=== PATIENT | male | born 1960 | race Caucasian/White ===

== ENCOUNTER → 2020-04-13 09:43 | Outpatient (CLI) | payer BC, SELFPAY ==
--- NOTE | ~2020-04-13 | CT_ITS ---
EXAMINATION: CT lung screening DATE: 04/13/2020 10:01 INDICATION: Personal history of nicotine dependence, current smoker with 30 pack year history TECHNIQUE: Computed tomography (CT) of the chest was performed without intravenous contrast. The dose -length product (DLP) was 324.63 mGy-cm. Automated exposure control and iterative reconstruction tech [employer] were employed. COMPARISON: 11/16/2018 FINDINGS: No suspicious pulmonary nodules are identified. Calcified pulmonary nodules are consistent with old granulomatous disease. There is mild emphysema. The lungs are free of acute opacities. There is no pleural effusion or pneumothorax. There is chronic mild atelectasis of the right lower lobe. C alcified coronary artery atherosclerosis is noted. There is mild thoracic spondylosis. There is parti ally imaged anterior fusion hardware in the lower cervical spine. IMPRESSION: 1. Lung-RADS category 1: Negative. Continue annual screening with noncontrast low-dose chest CT in 12 months. Reviewed, dictated and finalized at location A. [employer] IMPRESSION: 1. Lung-RADS category 1: Negative. Continue annual screening with noncontrast l ow-dose chest CT in 12 months.
== END ==
PROVIDERS: PCP Family Medicine; Visit Provider Physician Assistant
DX: Z12.2 Encounter for screening for malignant neoplasm of respiratory organs (principal); Z87.891 Personal history of nicotine dependence
CPT/HCPCS: 71271

== ENCOUNTER 2020-09-10 09:08 | Outpatient (CLI) | payer BC, SELFPAY ==
--- NOTE | ~2020-09-10 | US_ITS ---
EXAMINATION: US carotid duplex BI DATE: 09/10/2020 10:41 INDICATION: Syncope and collapse TECHNIQUE: Grayscale, color Doppler, and pulsed Doppler images of the cervical carotid arteries were obtained. The degree of vessel stenosis is placed in one of the following categories: normal, <50%, 5 0-69%, >=70% but less than near-occlusion, near-occlusion, or total occlusion. Note that percent sten osis relative to normal distal artery lumen diameter is indirectly measured from velocity measurement s as described by Lee, et al. Radiology 2003; [id number]:[id number]. COMPARISON: None. FINDINGS: RIGHT: The right common carotid artery (CCA) peak systolic velocity (PSV) is 112 cm/s. The right internal ca rotid artery (ICA) PSV is 91 cm/s. The right ICA end-diastolic velocity (EDV) is 27 cm/s. The right I CA/CCA PSV ratio is 0.8. Grayscale and color Doppler images yield an estimate of <50% diameter reduct ion from plaque in the ICA. The external carotid artery (ECA) PSV is 95 cm/s. There is antegrade flow in the right vertebral artery. LEFT: The left CCA PSV is 115 cm/s. The left ICA PSV is 182 cm/s. The left ICA EDV is 15 cm/s. The left ICA /CCA PSV ratio is 1.6. Grayscale and color Doppler images yield an estimate of 50-69% diameter reduct ion from plaque in the ICA. The ECA PSV is 153 cm/s. There is antegrade flow in the left vertebral ar checo. IMPRESSION: 1. <50% stenosis in the right internal carotid artery. 2. 50-69% stenosis in the left internal carotid artery. Reviewed, dictated and finalized at location A.
--- NOTE | ~2020-09-10 | US_ITS ---
EXAMINATION: US art doppler w press LE BI DATE: 09/10/2020 10:41 INDICATION: Claudication. Peripheral arterial occlusive disease. TECHNIQUE: Segmental pressures and plethysmographic and Doppler waveforms of the brachial and lower e xtremity arteries were obtained. COMPARISON: None. FINDINGS: Right and left brachial artery pressures of 146 mm Hg and 146 mm Hg, respectively, are concordant (no rmal difference <= 30 mmHg). The right and left high-thigh pressure indices are 0.94 and 1.18, respec tively (normal > 1.2). The right ankle-brachial index (JOAN) is 0.75 (normal >= 0.9-1). The right great toe-brachial index (T BI) is 0.66 (normal >= 0.6-0.8). The right lower extremity segmental pressure gradients are normal (n ormal gradients <= 20-30 mmHg between adjacent levels on the same leg or the same levels on the two l egs). Arterial waveforms are biphasic with brisk systolic upstrokes in the arteries throughout the ri ght lower limb. The left JOAN is 0.79. The left TBI was unable to be obtained due to at location of the left great toe . The left lower extremity segmental pressure gradients are increased between the left high thigh, ab ove and below the knee popliteal arteries relative to the corresponding arteries in the contralateral right lower limb. There are also increased pressure gradients between the left onfcx-yaj-resv poplit eal artery and the arteries at the left ankle. Arterial waveforms are biphasic with brisk systolic up strokes throughout the arteries of the left lower limb. IMPRESSION: 1. Arterial occlusive disease to the bilateral lower limbs, mild mild and likely occurring primarily in the lower leg on the right and mild to moderate in severity on the right likely occurring between the aorta and the high right thigh. Reviewed, dictated and finalized at location A. IMPRESSION: 1. Arterial occlusive disease to the bilateral lower limbs, mild mild and likel y occurring primarily in the lower leg on the right and mild to moderate in sev erity on the right likely occurring between the aorta and the high right thigh.
== END 2020-09-10 09:09 | disposition home or self-care (01) ==
PROVIDERS: PCP Family Medicine; Referring Provider Nurse Practitioner Adult Health; Visit Provider Internal Medicine Cardiovascular Disease
DX: I73.9 Peripheral vascular disease, unspecified (principal); I65.23 Occlusion and stenosis of bilateral carotid arteries
CPT/HCPCS: 93880; 93923

== ENCOUNTER → 2021-05-13 11:36 | Outpatient (CLI) | payer BC, SELFPAY ==
--- NOTE | ~2021-05-13 | XR_ITS ---
EXAMINATION: XR lumbar spine min 4V DATE: 05/13/2021 12:03 INDICATION: Lumbar radiculopathy TECHNIQUE: Anteroposterior, lateral, and bilateral oblique views of the lumbar spine, and cone-down l ateral view of the lumbosacral junction were obtained. COMPARISON: 05/11/2013 FINDINGS: Lumbar dextrocurvature is noted. The vertebral body heights are maintained. Alignment is no rmal. There is mild loss of intervertebral disc space height throughout the lumbar spine. Small degen erative osteophytes project from the anterior endplates of multiple vertebral bodies. There is modera te facet osteoarthritis of the lower lumbar spine. Calcified atherosclerosis is noted. IMPRESSION: 1. [id number] lumbar spondylosis without acute findings or significant interval change. Reviewed, dictated and finalized at location D. IMPRESSION: 1. Nvaj-ay-nctrgcfu lumbar spondylosis without acute findings or significant in terval change.
== END ==
PROVIDERS: PCP Family Medicine; Visit Provider Physician Assistant
DX: M47.26 Other spondylosis with radiculopathy, lumbar region (principal)
CPT/HCPCS: 72110

== ENCOUNTER 2021-05-22 06:59 | Outpatient (CLI) | payer BC, SELFPAY ==
--- NOTE | ~2021-05-22 | MR_ITS ---
EXAMINATION: MR lumbar spine wo con EXAM DATE: 05/22/2021 07:30 INDICATION: M54.16 - Radiculopathy, lumbar region. TECHNIQUE: Multi-sequential, multiplanar MR images of the lumbar spine were obtained without contrast . Sagittal T1, T2, T2 fat saturation images. Axial T2 weighted images. Comparison is made to prior examination from 01/26/2012. FINDINGS: Mild to moderate diffuse thoracolumbar disc disease. The vertebral bodies are aligned in th e AP dimension. Vertebral body heights are maintained. There are no suspicious marrow signal abnormal ities. The conus medullaris terminates at the L1/2 level and has normal signal intensity and morpholo gy. Paraspinal soft tissue is unremarkable. Level by level evaluation: T12-L1: There is a mild diffuse disc bulge. Facet arthropathy: Mild. Neural foraminal stenosis: No stenosis. Central canal stenosis: Mild. L1-L2: There is a mild diffuse disc bulge. Facet arthropathy: Mild. Neural foraminal stenosis: Mild bilateral. Central canal stenosis: Mild. L2-L3: There is a mild diffuse disc bulge. Facet arthropathy: Mild to moderate. Neural foraminal stenosis: Minimal bilateral. Central canal stenosis: Mild. L3-L4: There is a mild to moderate diffuse disc bulge. Facet arthropathy: Mild to moderate. Neural foraminal stenosis: Moderate right, mild to moderate left. Central canal stenosis: Mild to moderate. L4-L5: There is a moderate diffuse disc bulge. Facet arthropathy: Moderate. Neural foraminal stenosis: Moderate bilateral. Central canal stenosis: Mild to moderate. L5-S1: There is a moderate diffuse disc bulge. Facet arthropathy: Moderate to severe right, moderate left. Neural foraminal stenosis: Moderate left, mild to moderate right. Central canal stenosis: Mild to moderate. There is progression spondylosis compared to 2011. IMPRESSION: 1. Overall moderate lower lumbar predominant spondylosis as detailed above. Reviewed, dictated and finalized at location B.
== END 2021-05-22 07:00 ==
PROVIDERS: PCP Family Medicine; Visit Provider Physician Assistant
DX: M47.25 Other spondylosis with radiculopathy, thoracolumbar region (principal); M48.05 Spinal stenosis, thoracolumbar region; M47.27 Other spondylosis with radiculopathy, lumbosacral region; M48.07 Spinal stenosis, lumbosacral region
CPT/HCPCS: 72148

== ENCOUNTER 2021-06-05 08:09 | Outpatient (CLI) | payer BC, SELFPAY ==
--- NOTE | ~2021-06-05 | CT_ITS ---
EXAMINATION: CT cervical spine w con EXAM DATE: 06/05/2021 08:36 INDICATION: R29.898 - Other symptoms and signs involving the musculos... TECHNIQUE: Spiral CT of the cervical spine was performed without contrast. Axial images were reviewe d. Coronal and sagittal reformatted images cervical spine were also reviewed. The dose-length produc t (DLP) for this examination was 616.66 mGy-cm. The exposure was tailored according to patient size (auto mA exposure control), and iterative reconstruction (ASIR) was used as additional dose reduction technique. There is no prior study for comparison. FINDINGS: Anterior and interbody fusion at C5-6. Moderate C4-5 disc disease, mild to moderate at C3-4 . Moderate to severe disc disease at C6-7. The vertebral bodies are aligned in the AP dimension. The odontoid process is intact. The lateral masses of C1 line up with C2. Prevertebral soft tissue and p re-dens space are within normal limits. Level by level evaluation: C2-C3: Disc does not extend beyond the endplate margin. Uncovertebral joint arthropathy: Mild right. Facet joint arthropathy: Mild bilateral. Neural foraminal stenosis: No stenosis. Central canal stenosis: No stenosis. C3-C4: There is a mild diffuse disc bulge. Uncovertebral joint arthropathy: Mild left. Facet joint arthropathy: Mild bilateral. Neural foraminal stenosis: Mild left. Central canal stenosis: No stenosis. C4-C5: There is a mild diffuse disc bulge. Uncovertebral joint arthropathy: Mild to moderate bilateral. Facet joint arthropathy: Mild to moderate bilateral. Neural foraminal stenosis: Mild bilateral. Central canal stenosis: Mild. C5-C6: This level is fused. Uncovertebral joint arthropathy: Fused. Facet joint arthropathy: Partially fused. Neural foraminal stenosis: No stenosis. Central canal stenosis: No stenosis. C6-C7: There is a mild to moderate diffuse disc bulge. Uncovertebral joint arthropathy: Moderate. Facet joint arthropathy: Mild to moderate left, mild right. Neural foraminal stenosis: Mild to moderate right. Central canal stenosis: Mild. C7-T1: Disc does not extend beyond the endplate margin. Uncovertebral joint arthropathy: Mild right. Facet joint arthropathy: Mild to moderate left, mild right. Neural foraminal stenosis: Mild to moderate right, no left. Central canal stenosis: No stenosis. IMPRESSION: 1. Intact C5-6 fusion. 2. Overall mild to moderate cervical spondylosis. Reviewed, dictated and finalized at location B.
[2021-06-05 08:28] LABS: Estimated Glomerular Filt Rate > 60
== END 2021-06-05 08:10 | disposition home or self-care (01) ==
PROVIDERS: PCP Family Medicine; Visit Provider Physician Assistant
DX: R29.898 Other symptoms and signs involving the musculoskeletal system (principal); Z98.1 Arthrodesis status; M47.812 Spondylosis without myelopathy or radiculopathy, cervical region
CPT/HCPCS: 72126; Q9967

== ENCOUNTER 2023-06-30 11:43 | Outpatient (CLI) | payer BC, SELFPAY ==
--- NOTE | ~2023-06-30 | CT_ITS ---
CT Scan of the Chest without Contrast: Clinical Indication: Lung cancer screening, nicotine dependence Technique: Contiguous sections were acquired throughout the chest without intravenous contrast. Dose reduction technique was used on this scan by utilizing automated exposure control and iterative recon struction technique. The dose-length product (DLP) was 324.22 mGy-cm. COMPARISON: 04/13/2020 Findings: There is no evidence of any significant mediastinal, hilar or axillary lymphadenopathy. There are ath erosclerotic calcifications of the aorta and coronary arteries. There is no evidence of pleural or pericardial effusion. Large calcified left lower lobe granuloma present. No suspicious pulmonary nodule seen. Images through the upper abdomen reveal no abnormalities. Impression: Lung RADS 2: Benign appearance. 12 month follow-up screening CT advised. Reviewed, dictated and finalized at [facility]. Impression: Lung RADS 2: Benign appearance. 12 month follow-up screening CT advised.
== END 2023-06-30 11:44 ==
LOC: MICIMG 11:44
PROVIDERS: PCP Emergency Medicine; Visit Provider Emergency Medicine
DX: Z12.2 Encounter for screening for malignant neoplasm of respiratory organs (principal); Z87.891 Personal history of nicotine dependence
CPT/HCPCS: 71271

== ENCOUNTER 2024-08-23 08:30 | Outpatient (CLI) | payer BC, SELFPAY ==
--- NOTE | ~2024-08-23 | US_ITS ---
EXAMINATION: US aorta DATE: 08/23/2024 18:42 CDT INDICATION: Nicotine dependence TECHNIQUE: Grayscale, color Doppler, and pulsed Doppler images of the aorta and common iliac arteries were obtained. COMPARISON: None. FINDINGS: The proximal aorta measures 2.5 x 1.8 cm The mid aorta is poorly visualized secondary to overlying bowel gas. The distal aorta measures 2.2 x 2.4 cm The right common internal iliac artery measures 1.5 cm. The left common iliac artery measures 1.2 cm. IMPRESSION: 1. Limited visualization of the mid abdominal aorta, as detailed above. Otherwise, no sonographic evidence of a abdominal or iliac aortic aneurysm. Reviewed, dictated and finalized at location A.
--- NOTE | ~2024-08-23 | CT_ITS ---
CT Scan of the Chest without Contrast: Clinical Indication: Lung cancer screening, nicotine dependence Technique: Contiguous sections were acquired throughout the chest without intravenous contrast. Dose reduction technique was used on this scan by utilizing automated exposure control and iterative recon struction technique. The dose-length product (DLP) was 296.82 mGy-cm. COMPARISON: 06/30/2023 Findings: There is no evidence of any significant mediastinal, hilar or axillary lymphadenopathy. Coronary kendrick ry calcifications are present. There is no evidence of pleural or pericardial effusion. The lungs are clear, aside from large calcified left lower lobe granuloma. Images through the upper abdomen reveal no abnormalities. Impression: Lung RADS 2: Benign appearance. 12 month follow-up screening CT advised. Reviewed, dictated and finalized at location . Impression: Lung RADS 2: Benign appearance. 12 month follow-up screening CT advised.
== END 2024-08-23 08:31 | disposition home or self-care (01) ==
LOC: MICIMG 08:33
PROVIDERS: PCP Nurse Practitioner Family; Visit Provider Nurse Practitioner Family
DX: Z12.2 Encounter for screening for malignant neoplasm of respiratory organs (principal); Z87.891 Personal history of nicotine dependence; I73.9 Peripheral vascular disease, unspecified
CPT/HCPCS: 71271; 76775